=== PATIENT | male | born 1995 | race Two or more races ===

== ENCOUNTER 2019-01-31 12:15 | Emergency (ER) | payer OTHER ==
[~2019-01-31] VITALS: Ht 180.3 cm; Wt 97.5 kg
[2019-01-31 12:48] VITALS: BP 144/85
[2019-01-31] MEDS ORDERED: AMOX500C PO (13:28)
[2019-01-31] MEDS ORDERED: ONDA4TAB12 PO (13:29)
--- NOTE | 2019-01-31 13:29 | PHYS DOC ---
Adult General Chief Complaint Chief Complaint: EARACHE/EAR PAIN HPI HPI Patient is a 23 year old male who presents with 2 weeks of cough, nasal congestion, fever and then yesterday started having left ear pain. Patient's been taking ibuprofen last took ibuprofen this morning. Patient states he also has nosebleeds from time to times since has been sick. Review of Systems Review of Systems Constitutional: fever or chills [] Eyes: Denies change in visual acuity, redness, or eye pain [] HENT: nasal congestion or denies sore throat [] Respiratory: cough or denies shortness of breath [] Cardiovascular: No additional information not addressed in HPI [] GI: Denies abdominal pain, + nausea, + vomiting, denies bloody stools or diarrhea [] : Denies dysuria or hematuria [] Musculoskeletal: Denies back pain or joint pain [] Integument: Denies rash or skin lesions [] Neurologic: Denies headache, focal weakness or sensory changes [] All other systems were reviewed and found to be within normal limits, except as documented in this note. Physical Exam Physical Exam Constitutional: Well developed, well nourished, no acute distress, non-toxic appearance. [] HENT: Normocephalic, atraumatic, bilateral external ears normal, oropharynx moist, no oral exudates, nose normal. Left ear tympanic reddened.[] Eyes: PERRLA, EOMI, conjunctiva normal, no discharge. [] Neck: Normal range of motion, no tenderness, supple, no stridor. [] Cardiovascular:Heart rate regular rhythm, no murmur [] Lungs & Thorax: Bilateral breath sounds clear to auscultation [] Abdomen: Bowel sounds normal, soft, no tenderness, no masses, no pulsatile masses. [] Skin: Warm, dry, no erythema, no rash. [] Back: No tenderness, no CVA tenderness. [] Extremities: No tenderness, no cyanosis, no clubbing, ROM intact, no edema. [] Neurologic: Alert and oriented X 3, normal motor function, normal sensory function, no focal deficits noted. [] Psychologic: Affect normal, judgement normal, mood normal. [] EKG EKG [] Radiology/Procedures Radiology/Procedures [] Course & Med Decision Making Course & Med Decision Making Patient is a 23 year old male who presents with 2 weeks of cough, nasal congestion, fever and then yesterday started having left ear pain. Patient's been taking ibuprofen last took ibuprofen this morning. Patient states he also has nosebleeds from time to times since has been sick. Alert and oriented. Skin pink warm and dry. Mucous members are moist. Left ear tympanic is reddened. Right tympanic is foggy in color. Lungs are clear to auscultation lobes. Vital signs are within normal limits. Afebrile. Throat is reddened but there is no swelling or exudates. Abdomen is soft and nontender. Patient states he will become nauseated and vomit but it's only been happening the last couple days has only vomited 2-3 times. Patient states that most the time he is keeping food or fluids down. Patient does not have a primary care provider. Patient will be treated for otitis media. Patient started using nasal spray such as nasal neck or Afrin or saline nasal spray to help with nasal congestion and nasal bleeding. Patient to drink plenty of fluids. Patient is to follow-up with primary care or return if not getting better. Dragon Disclaimer Dragon Disclaimer This electronic medical record was generated, in whole or in part, using a voice recognition dictation system. Departure Departure Impression: Primary Impression: Otitis media Disposition: 01 HOME, SELF-CARE Condition: STABLE Referrals: NO PCP (PCP) Patient Instructions: Otitis Media, Adult Additional Instructions: Follow up with primary care provider. Drink plenty of fluids. Continue taking ibuprofen or Tylenol for pain and fever. Try using nasal sprays as we discussed. Scripts Ondansetron (ONDANSETRON ODT) 4 Mg Tab.rapdis 1 TAB PO PRN Q6-8HRS for Nausea or vomiting, #20 TAB Prov: NILSON THOMAS APRN 01/31/19 Amoxicillin (AMOXICILLIN) 500 Mg Capsule 1 CAP PO BID for 10 Days, #20 CAP Prov: NILSON THOMAS APRN 01/31/19 Problem Qualifiers Primary Impression: Otitis media Otitis media type: unspecified Laterality: left Qualified Codes: H66.92 - Otitis media, unspecified, left ear NILSON THOMAS APRN Jan 31, 2019 13:29
== END 2019-01-31 14:14 | disposition home or self-care (01) ==
LOC: ER 12:15
DX: H66.92 Otitis media, unspecified, left ear (principal)
CPT/HCPCS: 99283